=== PATIENT | female | born 1955 | race Caucasian/White ===

== ENCOUNTER 2019-03-04 19:43 | Inpatient (IN) | payer MEDICAID ==
[~2019-03-04] VITALS: Ht 170.2 cm; Wt 116.0 kg
[2019-03-04 20:57] LABS: Basophils # (auto) 0 uL; Basophils % (auto) 0.6 % (0.0-2.0); Eosinophils # (auto) 0.1 uL; Eosinophils % (auto) 1.4 % (0.0-7.0); Hematocrit 33.9 % (36.0-46.0); Hemoglobin 10.8 g/dL (12.2-16.2); Lymphocytes % (auto) 12.4 % (10.0-50.0); Mean Corpuscular Hemoglobin 28.4 pg (28.0-32.0); Mean Corpuscular Hgb Conc. 31.8 g/dL (32.0-36.0); Mean Corpuscular Volume 89.5 fL (80.0-100.0); Monocytes # (auto) 0.4 uL; Monocytes % (auto) 5.6 % (0.0-12.0); Neutrophils # (auto) 6.4 uL; Platelet Count (auto) 174 10^3/uL (140-450); Red Blood Cells 3.79 10^6/uL (4.0-5.20); Red Cell Distribution Width 16.2 % (11.8-14.3)
[2019-03-04 21:10] LABS: Alanine Aminotransferase 12 U/L (13-56); Albumin 3.3 g/dL (3.4-5.0); Anion Gap 5 (5-15); Aspartate Aminotransferase 10 U/L (15-37); BUN/Creatinine Ratio 18.9; Blood Urea Nitrogen 24 mg/dL (7-18); Calcium 8.3 mg/dL (8.5-10.1); Carbon Dioxide 36 mmol/L (21-32); Chloride 102 mmol/L (98-107); GFR African American 55 mL/min; GFR Non-African American 45 mL/min; Glucose 176 mg/dL (74-106); Potassium 4.3 mmol/L (3.5-5.1); Sodium 143 mmol/L (136-145)
[2019-03-04 21:15] LABS: Alkaline Phosphatase 91 U/L (45-117); Bilirubin, Total 0.2 mg/dL (0.2-1.0); Total Protein 6.7 g/dL (6.4-8.2)
[2019-03-04] MEDS ORDERED: IPRATROPIUM BROM 0.5 MG/2.5ML INH SOL NEB ONE (21:15)
[2019-03-04] MEDS ORDERED: methylPREDNISolone SOD SUCC 125 MG/2 ML VL IV ONE (21:15)
[2019-03-04] MEDS ORDERED: ALBUTEROL SULF 2.5 MG/0.5ML(0.5%) NEB SOLN NEB ONE (21:15)
[2019-03-04] MEDS ORDERED: AZITHROMYCIN 500MG/ 250ML 250 ML IV ONE (22:30)
[2019-03-04] MEDS ORDERED: MORPHINE SULF INJ 2 MG/ML SYRINGE 1ML IV PRN (22:30)
[2019-03-04] MEDS ORDERED: DEXTROSE (50%) 50ML SYRG IV PRN (22:30)
[2019-03-04] MEDS ORDERED: cefTRIAXone 1GM/50ML D5W 50 ML IV ONE (22:30)
[2019-03-04] MEDS ORDERED: NITROGLYCERIN 0.4 MG SL TAB SL PRN (22:30)
[2019-03-05] VITALS (8 sets, daily range): BP systolic 119–147; BP diastolic 60–85
--- NOTE | 2019-03-05 00:40 | NUR ---
Telemetry admit from ER TAMMY ALLISON admitted to Telemetry unit after SBAR received. Patient oriented to primary RN, unit, room, bed, and unit policies regarding patient care and visiting hours. Patient now on continuous telemetry monitoring, tele box # 10. Patient placed on bedside oxygen, weighed by bedscale and encouraged to call if they need something. All questions and concerns addressed, patient verbalized understanding. Bed locked in lowest position and bed rails up x2. Call light within reach.
[2019-03-05] MEDS ORDERED: HYDR-4798 PO (03:01)
[2019-03-05] MEDS ORDERED: GABA100C9 PO (03:02)
[2019-03-05] MEDS ORDERED: TIZA2CAP12 PO (03:02)
[2019-03-05] MEDS: IPRATROPIUM BROM 0.5 MG/2.5ML INH SOL NEB SCH ×6 (04:42→22:04)
[2019-03-05] MEDS: ALBUTEROL SULF 2.5 MG/0.5ML(0.5%) NEB SOLN NEB SCH ×6 (04:42→22:04)
[2019-03-05] MEDS: BUDESONIDE (INHALATION) 0.5 MG/2 ML NEB NEB SCH ×2 (06:00→18:23)
[2019-03-05] MEDS ORDERED: ATOR20TA50 PO (06:53)
[2019-03-05] MEDS ORDERED: GUAI600T23 PO (06:53)
[2019-03-05] MEDS ORDERED: HYDR-4924 PO ×2 (06:53)
[2019-03-05] MEDS ORDERED: TRAZ-181 PO (06:53)
[2019-03-05] MEDS ORDERED: MULTCAP45 PO (06:53)
[2019-03-05] MEDS ORDERED: PANT40TA2 PO (06:53)
[2019-03-05] MEDS ORDERED: ALBUAER3 IN (06:53)
[2019-03-05] MEDS ORDERED: METO25TA62 PO (06:53)
[2019-03-05] MEDS ORDERED: MONT10TA34 PO (06:53)
[2019-03-05] MEDS ORDERED: ARIP5TAB15 PO (06:53)
[2019-03-05] MEDS ORDERED: SERT-377 PO (06:53)
[2019-03-05] MEDS ORDERED: ASPI-404 PO (06:53)
[2019-03-05] MEDS ORDERED: BENA40TA7 PO (06:53)
[2019-03-05] MEDS: ACCU-CHEK COMFORT CURVE STRIP VI SCH ×4 (07:01→21:35)
[2019-03-05] MEDS: HYDROcodone-ACET 5/325MG TAB PO PRN ×2 (07:01→20:24)
[2019-03-05] MEDS: InsuLIN REG 1unit/0.01ml Soln (100units/ml) SC SCH ×4 (07:02→21:41)
--- NOTE | 2019-03-05 07:40 | NUR ---
Opening Shift Note Assumed care of patient, awake and alertX4, patient on 4L NC. No S/S of distress/SOB or pain. Bed at lowest locked position, bed side rails up x2 and call light within reach. Instructed on POC and to call for assist PRN, will continue to monitor for changes Q1hr and PRN.
[2019-03-05 07:49] LABS: Anion Gap 4 (5-15); BUN/Creatinine Ratio 20.5; Blood Urea Nitrogen 23 mg/dL (7-18); Calcium 8.5 mg/dL (8.5-10.1); Carbon Dioxide 37 mmol/L (21-32); Chloride 100 mmol/L (98-107); GFR African American 63 mL/min; GFR Non-African American 52 mL/min; Glucose 270 mg/dL (74-106); Potassium 4.6 mmol/L (3.5-5.1); Sodium 141 mmol/L (136-145)
[2019-03-05] MEDS: AZITHROMYCIN 500MG/ 250ML 250 ML IV SCH (10:01)
[2019-03-05] MEDS: cefTRIAXone 1GM/50ML D5W 50 ML IV SCH (10:01)
[2019-03-05] MEDS: FAMOTIDINE 20 MG TAB PO SCH ×2 (10:02→21:34)
--- NOTE | 2019-03-05 10:10 | NUR ---
Urine Sample collected and sent to lab via [facility] system.
[2019-03-05 10:11] LABS: Urine Bacteria NONE SEEN /hpf (None Seen); Urine Blood Negative /uL (Negative); Urine Mucus FEW (None Seen); Urine Specific Gravity 1.026 (1.001-1.035); Urine WBC 3 /hpf (0 - 5)
[2019-03-05] MEDS ORDERED: methylPREDNISolone SOD SUCC 40 MG/ML VL IV ONE (14:45)
[2019-03-05] MEDS ORDERED: SERTRALINE HCL 50 MG TAB PO ONE (14:45)
[2019-03-05] MEDS: metFORMIN HYDROCHLORIDE 500 MG TAB PO SCH (18:00)
--- NOTE | 2019-03-05 19:25 | NUR ---
Opening Shift Note Report received from day shift RN. Assumed care of patient. Patient sitting in bed and A&O x4. No S/S of distress/SOB noted. Patient complains of back pain 8/10 on a numerical scale. Will medicate as ordered. Bed locked and left in the lowest position, bed rails up x2 and call light left within reach. Will continue to monitor for changes Q1hr and PRN.
[2019-03-05] MEDS ORDERED: traZODone HCL 50 MG TAB PO SCH (22:00)
[2019-03-05] MEDS ORDERED: ATORVASTATIN 20 MG TAB PO SCH (22:00)
[2019-03-05] MEDS ORDERED: MONTELUKAST SODIUM 10 MG TAB PO SCH (22:00)
--- NOTE | 2019-03-05 22:10 | NUR ---
IV removal/ insertion IV noted being infiltrated and leaking. IV DC'd with clean sterile technique, catheter fully intact. Pressure dressing applied to site. New IV access obtained, via clean sterile technique by inserting gauge catheter at right hand after 2 attempts. IV secured properly. No trauma to site. Patient tolerated well.
[2019-03-05] MEDS: methylPREDNISolone SOD SUCC 40 MG/ML VL IV SCH (22:47)
--- NOTE | 2019-03-05 23:00 | NUR ---
Critical lab Was informed patient was positive for MRSA in the nares. Hospitalist made aware.
[2019-03-06 05:07] VITALS: BP 144/76
[2019-03-06] MEDS: ALBUTEROL SULF 2.5 MG/0.5ML(0.5%) NEB SOLN NEB SCH ×3 (06:07→14:19)
[2019-03-06] MEDS: IPRATROPIUM BROM 0.5 MG/2.5ML INH SOL NEB SCH ×3 (06:07→14:19)
[2019-03-06] MEDS: BUDESONIDE (INHALATION) 0.5 MG/2 ML NEB NEB SCH (06:18)
[2019-03-06] MEDS: InsuLIN REG 1unit/0.01ml Soln (100units/ml) SC SCH ×2 (06:44→11:54)
[2019-03-06] MEDS: ACCU-CHEK COMFORT CURVE STRIP VI SCH ×2 (06:45→11:54)
[2019-03-06 06:54] LABS: BUN/Creatinine Ratio 22.8; Calcium 8.9 mg/dL (8.5-10.1); Potassium 4.7 mmol/L (3.5-5.1)
--- NOTE | 2019-03-06 07:30 | NUR ---
Opening Shift Note Assumed care of patient, awake, alert, and oriented x4. No S/S of distress/SOB, but patient is reporting generalized body pain of 8/10. IV is in right hand 22 gauge is asymptomatic, intact, patent, and saline locked. Bed is locked and in lowest position and call light is within reach. Instructed on POC and to call for assist PRN, and patient verbalized understanding. Will continue to monitor for changes Q1hr and PRN.
[2019-03-06 09:00] VITALS: BP 124/77
[2019-03-06] MEDS ORDERED: SERTRALINE HCL 50 MG TAB PO SCH (10:00)
[2019-03-06] MEDS ORDERED: ASPirin 81 mg TAB PO SCH (10:00)
[2019-03-06] MEDS: metFORMIN HYDROCHLORIDE 500 MG TAB PO SCH (10:38)
[2019-03-06] MEDS: cefTRIAXone 1GM/50ML D5W 50 ML IV SCH (10:38)
[2019-03-06] MEDS: methylPREDNISolone SOD SUCC 40 MG/ML VL IV SCH (10:38)
[2019-03-06] MEDS: HYDROcodone-ACET 5/325MG TAB PO PRN (10:39)
[2019-03-06] MEDS: FAMOTIDINE 20 MG TAB PO SCH (10:39)
[2019-03-06] MEDS: AZITHROMYCIN 500MG/ 250ML 250 ML IV SCH (10:40)
--- NOTE | 2019-03-06 11:09 | NUR ---
Dr. Monroy, Hospitalist, at bedside; new orders received.
[2019-03-06 13:00] VITALS: BP 147/90
--- NOTE | 2019-03-06 16:30 | NUR ---
Discharge instructions given as ordered. Encourage to follow up with PMD as instructed. All questions and concerns addressed. Patient verbalized understanding. Medication reconciliation form completed and copy given to patient. Home medications held in Pharmacy returned to patient. IV removed with catheter intact, pressure dressing applied. Telemetry unit returned to ICU. Patient taken to vehicle via wheelchair with all personal belongings, accompanied by staff and family member. No distress noted at time of departure.
== END 2019-03-06 14:00 | disposition home or self-care (01) | DRG 133 ==
LOC: EDBD 19:43 → ER 19:50 → TELE 19:51 → TELE-EAST 23:33
PROVIDERS: ADMIT Internal Medicine; ATTEND Internal Medicine
PROC: 5A09357 Assistance with Respiratory Ventilation, Less than 24 Consecutive Hours, Continuous Positive Airway Pressure (ICD-10-PCS; principal; 2019-03-05)
DX: J96.20 Acute and chronic respiratory failure, unspecified whether with hypoxia or hypercapnia (principal); J18.9 Pneumonia, unspecified organism; E11.22 Type 2 diabetes mellitus with diabetic chronic kidney disease; J44.0 Chronic obstructive pulmonary disease with (acute) lower respiratory infection; E66.01 Morbid (severe) obesity due to excess calories; J45.901 Unspecified asthma with (acute) exacerbation; N18.3 Chronic kidney disease, stage 3 (moderate); J44.1 Chronic obstructive pulmonary disease with (acute) exacerbation; J20.9 Acute bronchitis, unspecified; K21.9 Gastro-esophageal reflux disease without esophagitis; E78.5 Hyperlipidemia, unspecified; I12.9 Hypertensive chronic kidney disease with stage 1 through stage 4 chronic kidney disease, or unspecified chronic kidney disease; F32.9 Major depressive disorder, single episode, unspecified; M19.90 Unspecified osteoarthritis, unspecified site; Z80.9 Family history of malignant neoplasm, unspecified; Z22.322 Carrier or suspected carrier of Methicillin resistant Staphylococcus aureus; Z83.3 Family history of diabetes mellitus; Z87.891 Personal history of nicotine dependence; Z68.41 Body mass index [BMI] 40.0-44.9, adult
CPT/HCPCS: 36415; 36600; 71045; 80048; 80053; 81001; 82805; 82962; 83036; 83880; 84443; 84484; 85025; 85379; 87081; 93005; 93306; 94640; 94660; G0378; J0696; J1815